=== PATIENT | male | born 1975 | race American Indian/Alaskan Native ===

== ENCOUNTER 2017-08-26 19:45 | Emergency (ER) | payer BC ==
[2017-08-26 20:28] VITALS: BP 142/92
--- NOTE | 2017-08-26 21:45 | XRay Report ---
FINAL REPORT PROCEDURE: XR SPINE LUMBOSACRAL 2-3V TECHNIQUE: Lumbar spine radiographs, including AP, lateral, and lumbosacral spot views. CPT 55949 HISTORY: lower back pain COMPARISON: No prior studies are available for comparison. FINDINGS: Alignment: Normal. Vertebral body heights/Disk spaces: Normal. Fracture(s): There is a fracture of the right transverse process of L5.. Facets: Normal. Bone mineralization: Normal. IMPRESSION: Fracture of the right transverse process of L5..
[2017-08-26] MEDS ORDERED: ULTRAM PO ONE (23:28)
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
== END 2017-08-27 00:17 | disposition home or self-care (01) ==
LOC: ED 19:45
DX: S32.009A Unspecified fracture of unspecified lumbar vertebra, initial encounter for closed fracture (principal); M54.5 Low back pain; S46.811A Strain of other muscles, fascia and tendons at shoulder and upper arm level, right arm, initial encounter; V89.2XXA Person injured in unspecified motor-vehicle accident, traffic, initial encounter; Y93.89 Activity, other specified; Y92.89 Other specified places as the place of occurrence of the external cause; Y99.8 Other external cause status
CPT/HCPCS: 72100; 99283